=== PATIENT | female | born 1960 | race African-American/Black ===

== ENCOUNTER 2018-02-25 08:39 | Emergency (ER) | payer OTHER ==
[~2018-02-25] VITALS: Ht 157.5 cm; Wt 85.0 kg
[~2018-02-25 08:39] MED LIST: ANUS25SU PR; ASPI325T PO; CIPR500T2 OR; LEVO150T7 PO; LEVO50TA51 PO; LOVA20TA PO; MULT-65 PO; ZITH250T PO; ZOCO40TA PO
[2018-02-25 08:51] VITALS: BP 138/80; PULSE 69; RESP 17; TEMP 98.4; O2SAT 99
[2018-02-25] MEDS ORDERED: AMOXICILLIN/CLAVULANATE K 875 MG TAB PO ONE (09:30)
[2018-02-25] MEDS ORDERED: TETANUS/DIPHTHERIA TOXOID ADULT 0.5 ML VIAL IM ONE (09:30)
[2018-02-25] MEDS ORDERED: RABIES IMMUNE GLOBULIN INJ 300 UNITS/2 ML VIAL IM ONE (09:30)
[2018-02-25] MEDS ORDERED: RABIES VACCINE CHICK EMB INJ 2.5 UNITS/ML SYR IM ONE (09:30)
[2018-02-25] MEDS ORDERED: AUGM875T3 PO ×2 (10:05→10:12)
--- NOTE | 2018-02-25 10:05 | PD ---
HPI Chief Complaint: Bite or Sting Time Seen by Provider: 09:11 Travel History International Travel<30 days: No Contact w/Intl Traveler<30days: No Traveled to known affect area: No History of Present Illness HPI 57-year-old female patient presents emergency department with cat bite to the left posterior leg which occurred yesterday. Patient states that she feeds Kevin cats, and 1 of the cats got "wild" yesterday, and scratched and bit her leg. Obviously she has no knowledge of shots being given to any of these cats. She is also unsure of her last tetanus shot. Pain is minimal. She denies fever or chills. No significant bleeding. She states she is allergic to penicillin, as it makes her itch, but can take amoxicillin. She is also allergic to acetaminophen and hydrocodone. PFSH Past Medical History Anemia: Yes Blood Disorders: No Heart Rhythm Problems: No Cancer: No Cardiovascular Problems: Yes High Cholesterol: Yes Chemotherapy: No Chest Pain: No Congestive Heart Failure: No Cerebrovascular Accident: No Diminished Hearing: No Endocrine: No GERD: No Genitourinary: Yes (UTI) Headaches: Yes (ON AND OFF) Hypertension: No Immune Disorder: No Musculoskeletal: Yes Neurologic: Yes (HEAD INJURY LAST YEAR- HAS HEADACHE ON AND OFF ) Psychiatric: No Reproductive: No Respiratory: Yes Immunizations Current: Yes Migraines: No Myocardial Infarction: No Radiation Therapy: No Seizures: No Thyroid Disease: Yes (HYPOTHYROID) Ulcer: No ?: Not Menopausal: Yes : 4 Para: 4 Miscarriage: 0 : 0 Tubal Ligation: Yes Past Surgical History Appendectomy: No Cholecystectomy: No Gynecologic Surgery: Yes (TUBAL LIGATION 30YRS AGO) Other Surgery: Yes Social History Alcohol Use: No Tobacco Use: No Substance Use: No Allergies-Medications (Allergen,Severity, Reaction): Coded Allergies: penicillin G (Unverified Allergy, Severe, ITCHING, 02/25/18) acetaminophen (Unverified Allergy, Intermediate, Nausea/Vomiting, 02/25/18) hydrocodone (Unverified Allergy, Intermediate, Nausea/Vomiting, 02/25/18) Reported Meds & Prescriptions Reported Meds & Active Scripts Active Ciprofloxacin Hcl 500 Mg Tab 500 Mg OR BID Zithromax Z-Freddie (Azithromycin) 250 Mg Tab 250 Mg PO DIRECTED 500 MG (2 TABLETS) PO ON DAY 1, THEN 250 MG (1 TABLET) PO ON DAYS 2 TO 5. Lovastatin 20 Mg Tab 20 Mg PO HS Levothyroxine 150 mcg (Levothyroxine Sodium) 150 Mcg Tab 150 Mcg PO DAILY Anusol-Hc (Hydrocortisone Acetate) 25 Mg Sup 25 Mg AK DAILY PRN Reported Multi-Vitamin Daily (Multivitamins) Daily Tab 1 Tab PO DAILY Review of Systems Except as stated in HPI: all other systems reviewed are Neg General / Constitutional: No: Fever Eyes: No: Visual changes HENT: No: Headaches Cardiovascular: No: Chest Pain or Discomfort Respiratory: No: Shortness of Breath Gastrointestinal: No: Abdominal Pain Genitourinary: No: Dysuria Musculoskeletal: No: Pain Skin: Positive Lesions (See history of present illness), No Rash Neurologic: No: Weakness Psychiatric: No: Depression Endocrine: No: Polydipsia Hematologic/Lymphatic: No: Easy Bruising Physical Exam Narrative GENERAL: Patient appears in no acute distress. SKIN: Warm and dry. Normal color. Normal turgor. Patient has a superficial scratch to the right lateral izaguirre, and 2 bite renteria on the left posterior calf, one consisting of 4 puncture wounds, and one consisting of 3 puncture wounds, consistent with patient's history. There is minimal localized swelling, erythema, or induration. There is no obvious streaking noted. HEAD: Atraumatic. Normocephalic. EYES: Pupils equal and round. No scleral icterus. No injection or drainage. ENT: No nasal bleeding or discharge. Mucous membranes pink and moist. Pharynx is clear. Airways patent. NECK: Trachea midline. Supple and nontender. CARDIOVASCULAR: Regular rate and rhythm. RESPIRATORY: No accessory muscle use. Clear to auscultation. Breath sounds equal bilaterally. MUSCULOSKELETAL: Extremities without clubbing, cyanosis, or edema. No obvious deformities. NEUROLOGICAL: Awake and alert. No obvious cranial nerve deficits. Motor grossly within normal limits. Five out of 5 muscle strength in the arms and legs. Normal speech. PSYCHIATRIC: Appropriate mood and affect; insight and judgment normal. Data Data Last Documented VS Vital Signs Date Time Temp Pulse Resp B/P (MAP) Pulse Ox O2 Delivery O2 Flow Rate FiO2 02/25/18 08:51 98.4 69 17 138/80 (99) 99 Orders Orders Amoxicil-Clavulanate (Augmentin) (02/25/18 09:30) Tetanus/Diphtheria Tox Adult (Tetanus/Di (4/12/18 09:30) Rabies Immune Globulin Inj (Hyperrab S/D (02/25/18 09:30) Rabies Vaccine Chick Emb Inj (Rabavert I (02/25/18 09:30) MDM Medical Decision Making Medical Screen Exam Complete: Yes Emergency Medical Condition: Yes Differential Diagnosis Cat bites. Risk for rabies. Need for tetanus. Narrative Course Patient is medically stable at time of exam. Patient is given Augmentin 875 mg p.o. now. Patient is given rabies immunoglobulin IM as well as her first rabies vaccine shot IM. Patient is given tetanus 0.5 mg IM. Patient will be continued on Augmentin 875 twice daily 5 days. Patient is to return in 3 days for her next rabies vaccine shot. Patient is to return again on day 7 and day 14, to finish the vaccine schedule. Patient can return sooner with any worsening symptoms as needed Diagnosis Primary Impression: Cat bite of left lower leg Qualified Codes: S81.852A - Open bite, left lower leg, initial encounter; W55.01XA - Bitten by cat, initial encounter Additional Impressions: Rabies, need for prophylactic vaccination against Tetanus toxoid vaccination status unknown Patient Instructions: Allergic Rhinitis in Children (GEN), General Instructions , Rabies Immune Globulin (By injection), Rabies Vaccine (By injection) Additional Instructions: Patient is medically stable at time of exam. Patient is given Augmentin 875 mg p.o. now. Patient is given rabies immunoglobulin IM as well as her first rabies vaccine shot IM. Patient is given tetanus 0.5 mg IM. Patient will be continued on Augmentin 875 twice daily 5 days. Patient is to return in 3 days for her next rabies vaccine shot. Patient is to return again on day 7 and day 14, to finish the vaccine schedule. Patient can return sooner with any worsening symptoms as needed Med/Other Pt SpecificInfo: Prescription(s) given Disposition: 01 DISCHARGE HOME Condition: Stable Ismael Thornton Feb 25, 2018 10:04
== END 2018-02-25 10:34 | disposition home or self-care (01) ==
LOC: NEPK 08:39
DX: S81.852A Open bite, left lower leg, initial encounter (principal); W55.01XA Bitten by cat, initial encounter; Z23 Encounter for immunization
CPT/HCPCS: 90375; 90471; 90472; 90675; 90714

== ENCOUNTER 2018-03-01 08:24 | Emergency (ER) | payer OTHER ==
[~2018-03-01] VITALS: Ht 160 cm; Wt 89.5 kg
[~2018-03-01 08:24] MED LIST changes: +AUGM875T3 PO
[2018-03-01 08:28] VITALS: BP 137/66; PULSE 66; RESP 16; TEMP 97.7; O2SAT 100
[2018-03-01 08:40] VITALS: BP 137/74; PULSE 62; RESP 17; TEMP 97.8; O2SAT 100
[2018-03-01] MEDS ORDERED: RABIES VACCINE CHICK EMB INJ 2.5 UNITS/ML SYR IM ONE (08:45)
[2018-03-01] MEDS ORDERED: VITA2000 PO (08:49)
[2018-03-01] MEDS ORDERED: LEVO125T4 PO (08:49)
[2018-03-01] MEDS ORDERED: PANT20TA2 PO (08:49)
[2018-03-01] MEDS ORDERED: LOVA20TA PO (08:49)
[2018-03-01] MEDS ORDERED: METF500T PO (08:49)
[2018-03-01] MEDS ORDERED: METR-1 PO (08:54)
[2018-03-01] MEDS ORDERED: BACT800T5 PO (08:54)
[2018-03-01] MEDS ORDERED: IBUP1TAB7 PO (08:54)
[2018-03-01] MEDS ORDERED: ROBA500T PO (08:54)
--- NOTE | 2018-03-01 09:03 | PD ---
HPI Chief Complaint: Fall Time Seen by Provider: 08:34 Travel History International Travel<30 days: No Contact w/Intl Traveler<30days: No Traveled to known affect area: No History of Present Illness HPI 57-year-old female presents to the emergency department with multiple complaints. Her first complaint is request for her day 3 rabies vaccine that was due yesterday. She says she was seen here for Bites and scratches to bilateral lower extremities on February 25. She is also requesting her antibiotics to be changed because she cannot afford it. She has not filled the prescription and has not started the antibiotic. Denies fever, vomiting. Denies drainage, erythema, edema to cat scratches or bites. Her other complaints are low back pain and left elbow pain after falling while pulling a bag of linen into an elevator and she fell backwards landing on her buttocks. Reports hitting her head but no loss of consciousness. Denies headache, lightheadedness, dizziness, change in mentation, confusion, disorientation, slurred speech, focal deficits or weakness. Denies anticoagulant therapy. Denies vomiting. Denies elbow pain at this time. Denies decreased range of motion, decreased strength, paresthesias, loss of sensation to all extremities. Denies other extremity pain. Denies chest pain, shortness of breath, abdominal pain, encopresis, incontinence, saddle anesthesias. Denies difficulty ambulating or change in gait. Has taken ibuprofen for symptom management. Rates pain 5/10. Low back pain is worse with sitting. Good relief with ibuprofen. Primary care provider is Dr. beck. Allergies to penicillin and Lortab. History of type 2 diabetes. Has no other medical complaints. No other modifying factors or associated signs and symptoms. PFSH Past Medical History Anemia: Yes Blood Disorders: No Heart Rhythm Problems: No Cancer: No Cardiovascular Problems: Yes High Cholesterol: Yes Chemotherapy: No Chest Pain: No Congestive Heart Failure: No Cerebrovascular Accident: No Diminished Hearing: No Endocrine: No GERD: No Genitourinary: Yes (UTI) Headaches: Yes (ON AND OFF) Hypertension: No Immune Disorder: No Musculoskeletal: Yes Neurologic: Yes (HEAD INJURY LAST YEAR- HAS HEADACHE ON AND OFF ) Psychiatric: No Reproductive: No Respiratory: Yes Immunizations Current: Yes Migraines: No Myocardial Infarction: No Radiation Therapy: No Seizures: No Thyroid Disease: Yes (HYPOTHYROID) Ulcer: No Influenza Vaccination: No Menopausal: Yes : 4 Para: 4 Miscarriage: 0 : 0 Tubal Ligation: Yes Past Surgical History Appendectomy: No Cholecystectomy: No Gynecologic Surgery: Yes (TUBAL LIGATION 30YRS AGO) Other Surgery: Yes Social History Alcohol Use: No Tobacco Use: No Substance Use: No Allergies-Medications (Allergen,Severity, Reaction): Coded Allergies: penicillin G (Unverified Allergy, Severe, ITCHING, 03/01/18) acetaminophen (Unverified Allergy, Intermediate, Nausea/Vomiting, 03/01/18) hydrocodone (Unverified Allergy, Intermediate, Nausea/Vomiting, 03/01/18) Reported Meds & Prescriptions Reported Meds & Active Scripts Active Robaxin (Methocarbamol) 500 Mg Tab 500 Mg PO QID PRN Ibuprofen 800 Mg Tab 800 Mg PO Q8HR PRN Bactrim DS (Sulfamethoxazole-Trimethoprim) 800-160 Mg Tab 1 Tab PO BID 10 Days Flagyl (Metronidazole) 500 Mg Tab 500 Mg PO TID 10 Days Augmentin (Amoxicillin-Clavulanate) 875-125 Mg Tab 1 Tab PO BID Reported Metformin (Metformin HCl) 500 Mg Tab 500 Mg PO BIDPC Vitamin D3 (Cholecalciferol) 2,000 Unit Cap 2,000 Units PO DAILY Lovastatin 20 Mg Tab 20 Mg PO HS Pantoprazole (Pantoprazole Sodium) 20 Mg Tab 20 Mg PO BID Levothyroxine (Levothyroxine Sodium) 125 Mcg Tab 125 Mcg PO DAILY Review of Systems Except as stated in HPI: all other systems reviewed are Neg Physical Exam Narrative GENERAL: Well-nourished, well-developed female patient, in no acute distress; afebrile, nontoxic-appearing SKIN: Warm and dry. Multiple scabbed scratch-like abrasions noted to bilateral lower extremities; without erythema, edema, drainage. No signs of infection. HEAD: Atraumatic. Normocephalic. No facial droop noted. Tongue midline. Finger to nose test normal. Shoulder shrug equal. EYES: Pupils equal and round. No scleral icterus. No injection or drainage. ENT: Mucosa pink and moist. Airway patent. NECK: Trachea midline. CARDIOVASCULAR: Regular rate. RESPIRATORY: No accessory muscle use. GASTROINTESTINAL: Obese. MUSCULOSKELETAL: Left elbow with full range of motion without erythema, edema, ecchymosis, tenderness of patient; full material loader strength and push/pull strength; no obvious deformity; 2+ radial pulse and sensory intact. Bilateral lower extremities supple and non-tense with 2+ pedal pulses and sensory intact; with full range of motion and 5/5 strength. 2+ DTRs bilaterally. Active dorsiflexion and extension of bilateral feet. Bilateral straight leg raise is negative for low back pain. Ambulatory in room with normal gait. Sitting up in bed at 90. No obvious deformities. No clubbing. No cyanosis. No edema. BACK: No midline point tenderness on palpation of the lumbar spine. Tenderness on palpation of bilateral lumbar iliosacral area. No obvious deformities. NEUROLOGICAL: Awake and alert. Oriented 3. No obvious cranial nerve deficits. Motor grossly within normal limits. Normal speech. Moves all extremities. No upper or lower extremity drift. No ataxia. No midline shift. 5/5 strength to all extremities. Sensory intact. PSYCHIATRIC: Appropriate mood and affect; insight and judgment normal. Data Data Last Documented VS Vital Signs Date Time Temp Pulse Resp B/P (MAP) Pulse Ox O2 Delivery O2 Flow Rate FiO2 03/01/18 08:40 97.8 62 17 137/74 (95) 100 Room Air Orders Orders Rabies Vaccine Chick Emb Inj (Rabavert I (03/01/18 08:45) Ibuprofen (Motrin) (03/01/18 09:15) Methocarbamol (Robaxin) (03/01/18 09:15) Spine, Lumbar - Ltd (Ap & Lat) (03/01/18 09:13) MDM Medical Decision Making Medical Screen Exam Complete: Yes Emergency Medical Condition: Yes Medical Record Reviewed: Yes Differential Diagnosis Fall, encounter for rabies vaccine administration, contusion of low back, left elbow contusion, medication change Narrative Course 57-year-old female with multiple complaints. She was seen on February 25 for Bite and rabies vaccines were initiated. Day 3 rabies vaccine ordered and administered in the ER. No signs of infection. Patient also requesting change of antibiotic from Augmentin because she cannot afford it. Flagyl and Bactrim prescribed for home. She had mechanical fall yesterday. The patient admits to hitting their head, but denies loss of consciousness. Denies nausea, vomiting. On physical exam the patient is without raccoon eyes, mohan signs, rhinorrhea , or hemotympanum. I do not suspect open or depressed skull fracture, and the patient has no signs of basilar skull fracture. [place] CT Head Injury Rule suggests a head CT is not necessary for this patient and clears the patient for head injury without imaging. She has no midline tenderness on palpation of the coccyx or lumbar spine and I feel that imaging is not necessary at this time. The patient is requesting x-ray of her lower back and says she will not leave until an x-ray is complete. lumbar spine x-ray ordered. She is complaining of left elbow pain that has resolved since after the fall. I do not suspect fracture dislocation and feel that imaging of the left elbow is not necessary and the patient agrees. Robaxin, ibuprofen, rabies vaccine ordered. 1001: Lumbar spine x-ray concluded: Lumbar Spine X-Ray 03/01/18 0913 Signed Impressions: Service Date/Time: Thursday, March 01, 2018 09:24 - CONCLUSION: Degenerative changes lower lumbar spine. Rahat Rizvi MD Discussed x-ray findings with the patient and provided the patient with a copy of the x-ray report. Robaxin and ibuprofen prescribed for home. Instructed patient to follow up with primary care provider. Patient verbalizes understanding and agreement with treatment plan. Patient is medically cleared and stable for discharge. Discussed reasons to return to the emergency department. Patient agrees with treatment plan. The patients vital signs are stable and the patient is stable for outpatient follow-up and treatment. Patient discharged home, stable and in no acute distress. Diagnosis Primary Impression: Fall Qualified Codes: W19.XXXA - Unspecified fall, initial encounter Additional Impressions: Contusion of lower back Qualified Codes: S30.0XXA - Contusion of lower back and pelvis, initial encounter Left elbow contusion Qualified Codes: S50.02XA - Contusion of left elbow, initial encounter Encounter for repeat administration of rabies vaccination Referrals: Primary Care Physician [facility] Dept. Patient Instructions: Acute Low Back Pain (ED), Animal Bite (ED), Fall Prevention (ED), General Instructions, Rabies Vaccine (ED) Departure Forms: Tests/Procedures Additional Instructions: Take Flagyl and Bactrim as prescribed for cat bites Tylenol or ibuprofen as directed and as needed for pain Robaxin as prescribed and as needed for muscle spasms Heating pad and/or ice to affected area to reduce pain Avoid aggravating activities; increase activity as tolerated Return to the emergency department or follow-up at the health department for rabies vaccinations on March 04 (day 7) and March 11 (day 14) Follow-up with primary care provider Return to emergency department immediately with worsening of symptoms Med/Other Pt SpecificInfo: Prescription(s) given, Existing Med Changed Scripts Methocarbamol (Robaxin) 500 Mg Tab 500 MG PO QID Y for MUSCLE SPASM, #20 TAB 0 Refills Prov: Valerie Sullivan 03/01/18 Ibuprofen (Ibuprofen) 800 Mg Tab 800 MG PO Q8HR Y for PAIN, #20 TAB 0 Refills Prov: Valerie Sullivan 03/01/18 Sulfamethoxazole-Trimethoprim (Bactrim DS) 800-160 Mg Tab 1 TAB PO BID for Infection for 10 Days, #20 TAB 0 Refills Prov: Valerie Sullivan 03/01/18 Metronidazole (Flagyl) 500 Mg Tab 500 MG PO TID for Infection for 10 Days, TAB 0 Refills Prov: Valerie Sullivan 03/01/18 Disposition: 01 DISCHARGE HOME Condition: Stable Valerie Sullivan Mar 01, 2018 09:03
[2018-03-01] MEDS ORDERED: IBUPROFEN 800 MG TAB PO ONE (09:15)
[2018-03-01] MEDS ORDERED: METHOCARBAMOL 500 MG TAB PO ONE (09:15)
--- NOTE | 2018-03-01 09:35 | RADRPT ---
EXAM DATE/TIME: 03/01/2018 09:24 [facility] COMPARISON: No previous studies available for comparison. INDICATIONS : Fall, complains of low back pain. MEDICAL HISTORY : None. SURGICAL HISTORY : None. ENCOUNTER: Initial ACUITY: 2 days PAIN SCORE: 6/10 LOCATION: Lumbar FINDINGS: Two view examination was performed. There are five non-rib bearing vertebral bodies. The vertebral bodies are in normal alignment without evidence of subluxation or scoliosis. Degenerative changes low er lumbar spine. The pedicles are intact. Bony mineralization is normal. No fracture is identified . CONCLUSION: Degenerative changes lower lumbar spine. Rahat Rizvi MD on March 01, 2018 at 9:33 Board Certified Radiologist. This report was verified electronically.
== END 2018-03-01 10:41 | disposition home or self-care (01) ==
LOC: NEPD 08:24
DX: S30.0XXA Contusion of lower back and pelvis, initial encounter (principal); S50.02XA Contusion of left elbow, initial encounter; W18.39XA Other fall on same level, initial encounter; Y92.89 Other specified places as the place of occurrence of the external cause; Z29.14 Encounter for prophylactic rabies immune globulin; E78.00 Pure hypercholesterolemia, unspecified; E03.9 Hypothyroidism, unspecified; E11.9 Type 2 diabetes mellitus without complications; Z88.0 Allergy status to penicillin; Z88.5 Allergy status to narcotic agent; Z79.84 Long term (current) use of oral hypoglycemic drugs; Z79.899 Other long term (current) drug therapy
CPT/HCPCS: 72100; 90471; 90675